=== PATIENT | male | born 1980 | race Caucasian/White ===

== ENCOUNTER → 2022-12-20 08:17 | Outpatient (CLI) | payer SELFPAY | PROVIDERS: Referring Provider Family Medicine; Visit Provider Family Medicine | DX: Z23 Encounter for immunization (principal) | CPT/HCPCS: 90471; 90686 ==

== ENCOUNTER → 2023-03-03 13:56 | Outpatient (CLI) | payer SELFPAY ==
[2023-03-07 15:30] LABS: QuantiFERON Mitogen Value >10.00 IU/mL (.); QuantiFERON TB Gold Plus Negative (Negative); QuantiFERON TB1 Ag Value 0.03 IU/mL (.); QuantiFERON TB2 Ag Value 0.03 IU/mL (.)
== END ==
DX: Z02.1 Encounter for pre-employment examination (principal)
CPT/HCPCS: 86480

== ENCOUNTER → 2023-12-02 16:15 | Outpatient (CLI) | payer OTHER, SELFPAY | PROVIDERS: Referring Provider Internal Medicine; Visit Provider Internal Medicine | DX: Z23 Encounter for immunization (principal) | CPT/HCPCS: 90471; 90656 ==

== ENCOUNTER 2024-04-11 15:17 | Emergency (ER) | payer OTHER, SELFPAY ==
[2024-04-11 15:19] VITALS: BP 114/70; PULSE 86; RESP 14; TEMP 36.6; O2SAT 99; BMI 25.7
--- NOTE | 2024-04-11 16:34 | ED.EXTPRO ---
HPI - Extremity Problem <Mansi Tejeda PA-C - Last Filed: 04/11/24 19:13> General Chief complaint: Extremity Problem,Nontraumatic Stated complaint: L Pinky Finger Infection Time Seen by Provider: 04/11/24 16:20 Source: patient Mode of arrival: Ambulatory History of Present Illness HPI Narrative: Mr. 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 Patient noticed redness and pus around his left pinky finger cuticle that started on Tuesday, he believes he might have had a hangnail there. Tuesday night he was started on Bactrim antibiotics however pain and swelling has only been getting worse. He presents to the emergency department today with hopes for drainage. He denies fevers, chills, other symptoms. Related Data Previous Rx's Medication Instructions Recorded diazepam 2 mg tablet (Valium) 2 mg PO BEDTIME PRN flight anxiety 03/29/24 #2 tabs ropinirole 0.25 mg tablet 0.25 mg PO DAILY #60 tabs 03/29/24 Allergies Allergy/AdvReac Type Severity Reaction Status Date / Time tramadol AdvReac Severe Seizure Verified 03/29/24 14:20 Review of Systems <Mansi Tejeda PA-C - Last Filed: 04/11/24 19:13> Review of Systems ROS Unobtainable: All systems reviewed & are unremarkable except as noted in HPI and below Patient History <Mansi Tejeda PA-C - Last Filed: 04/11/24 19:13> Medical History Fear of flying Restless leg syndrome Shift work sleep disorder Insomnia Social History Smoking Status: Former smoker Smoking Status: Former smoker Exam <Mansi Tejeda PA-C - Last Filed: 04/11/24 19:13> Narrative Exam Narrative: GENERAL: 43 year old patient appears stated age. Well-developed patient, in no acute distress. HEAD: Atraumatic. Normocephalic. CARDIOVASCULAR: Regular rate and rhythm. RESPIRATORY: ?Nonlabored respirations. ?Speaking in clear, full sentences. EXTREMITIES: left 5th finger with erythema, edema, purulent matter on the radial side of the proximal nail fold consistent with paronychia. No erythema or edema of the pad of the 5th finger. No streaking erythema up the hand or arm. No active drainage. NEURO: AOx3. ?Clear speech. ?Moves all 4 extremities appropriately. Initial Vital Signs Initial Vital Signs: Vital Signs Temperature 97.9 F 04/11/24 15:19 Pulse Rate 86 04/11/24 15:19 Respiratory Rate 14 04/11/24 15:19 Blood Pressure 114/70 04/11/24 15:19 Pulse Oximetry 99 04/11/24 15:19 Oxygen Delivery Method Room Air 04/11/24 15:19 <Gladys Lyons DO - Last Filed: 04/23/24 08:35> Initial Vital Signs Initial Vital Signs: Vital Signs Temperature 97.9 F 04/11/24 15:19 Pulse Rate 86 04/11/24 15:19 Respiratory Rate 14 04/11/24 15:19 Blood Pressure 114/70 04/11/24 15:19 Pulse Oximetry 99 04/11/24 15:19 Oxygen Delivery Method Room Air 04/11/24 15:19 Procedures <YULIET Cantu Last Filed: 04/11/24 19:13> Abscess I/D I&D #1: Time of procedure: 17:30 Site: hand (fifth finger) Side (if applicable): left Local Anesthetic: lidocaine 1% (digital block) Amount of anesthesia used (mL): 4 Technique: incised with #11 blade Amount of fluid expressed (mL): 3 Irrigation: No Packing used?: none Course <YULIET Cantu Last Filed: 04/11/24 19:13> Orders Ordered: Discontinued Medications Bacitracin (Bacitracin Oint 0.9 Gm Pckt) 1 applic TOP NOW ONE Stop: 04/11/24 17:37 Last Admin: 04/11/24 18:25 Dose: 1 applic Documented By: YOLANDA Doxycycline Hyclate (Doxycycline Hyclate 100 Mg Tablet) 100 mg PO NOW ONE Stop: 04/11/24 17:37 Last Admin: 04/11/24 18:25 Dose: 100 mg Documented By: YOLANDA Lidocaine HCl (Lidocaine 1% 20 Ml) 3 ml SUBCUT NOW ONE Stop: 04/11/24 16:50 Last Admin: 04/11/24 17:11 Dose: 3 ml Documented By: YOLANDA Vital Signs Vital signs: Vital Signs - 8 hr 04/11/24 15:19 Temperature 97.9 F Pulse Rate 86 Respiratory Rate 14 Blood Pressure 114/70 Pulse Oximetry 99 Oxygen Delivery Method Room Air <Gladys Lyons DO - Last Filed: 04/23/24 08:35> Orders Ordered: Discontinued Medications Bacitracin (Bacitracin Oint 0.9 Gm Pckt) 1 applic TOP NOW ONE Stop: 04/11/24 17:37 Last Admin: 04/11/24 18:25 Dose: 1 applic Documented By: YOLANDA Doxycycline Hyclate (Doxycycline Hyclate 100 Mg Tablet) 100 mg PO NOW ONE Stop: 04/11/24 17:37 Last Admin: 04/11/24 18:25 Dose: 100 mg Documented By: YOLANDA Lidocaine HCl (Lidocaine 1% 20 Ml) 3 ml SUBCUT NOW ONE Stop: 04/11/24 16:50 Last Admin: 04/11/24 17:11 Dose: 3 ml Documented By: YOLANDA Vital Signs Vital signs: Vital Signs - 8 hr 04/11/24 15:19 Temperature 97.9 F Pulse Rate 86 Respiratory Rate 14 Blood Pressure 114/70 Pulse Oximetry 99 Oxygen Delivery Method Room Air MDM - Extremity (Nontraumatic) <Mansi Tejeda PA-C - Last Filed: 04/11/24 19:13> Medical Records Attestation: I reviewed the patient's medical records. 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 Patient noticed redness and pus around his left pinky finger cuticle that started on Tuesday, he believes he might have had a hangnail there. Differential diagnosis includes but is not limited to paronychia, felon, cellulitis, abscess, etc. On exam patient is in no acute distress, nontoxic appearing, vital signs within normal limits. He has a paronychia on his left 5th finger. No streaking erythema. He has been on Bactrim for just under 2 days with no improvement of symptoms. We will proceed with I&D, obtain wound culture, and change antibiotic to doxycycline. Left 5th finger digital block was performed. Incision and drainage was performed after cleansing nail with Betadine. Eleven blade was used to make incision on the radial nail folds. Purulent matter was expressed and cultured. Wound was cleansed, bacitracin ointment applied, dressing applied. Discussed proper wound care with the patient, warm soaks, signs and symptoms to return to the ED for, PCP f/u. Patient verbalized understanding of all information is agreeable plan. He is stable for discharge home. Discharge Plan Departure Patient Disposition: Home Clinical Impression: Paronychia of left little finger Instructions: DI for Paronychia Activity Restrictions/Additional Instructions: Dear Mr. Figueroa, Thank you for coming to the emergency department today. Today we performed incision and drainage of a paronychia on your left 5th finger. A wound culture was obtained and was sent to the lab you will be called in 3 days if a change needs to be made your antibiotic regimen. I would like you to stop taking the Bactrim and start taking the doxycycline. Please perform 2-3 warm soapy water finger soaks daily and keep the wound covered with bacitracin or another antibiotic ointment at all times until it is healed. Avoid soaking the finger in any dirty water, pool, ocean, etc.. Return to the emergency department immediately if you develop any new or worsening symptoms, redness streaking up the hand or arm, fevers, any other concerns. Please take Ibuprofen (Motrin/Advil) or Acetaminophen (Tylenol) for pain. These are available over the counter. You may take Ibuprofen 600 mg every 8 hours with food for pain. You may also take Acetaminophen 650 mg every 4-6 hours for pain. Do not exceed 3000 mg of Tylenol a day as this can cause liver damage. Do not drink alcohol with either of these medications. Please follow up with your primary care doctor within the next 2-3 days for ER follow-up. (If you do not have a PCP you can call [phone]. ?to schedule an appointment with an [facility] Primary Care Provider) IF YOU DEVELOP ANY NEW OR WORSENING SYMPTOMS, RETURN TO THE ER! Please read the attached instructions, they highlight more specific treatments and interventions for you at home. Thank you for letting me participate in your care, Mansi Tejeda PA-C Prescriptions: No Action diazepam [Valium] 2 mg tablet 2 mg PO BEDTIME PRN (Reason: flight anxiety ) Qty: 2 0RF ropinirole 0.25 mg tablet 0.25 mg PO DAILY Qty: 60 1RF Rx Instructions: Start with 1 tab nightly, in 2 days increase to 2 tabs nightly, then in 5 days increase to 4 tabs nightly Referrals: Lisa Motta MD [Primary Care Provider] - Stand Alone Forms: Patient Portal/API/Survey ED Sign-out <Gladys Lyons DO - Last Filed: 04/23/24 08:35> Cosign ED Attending Coskettyature Attestation: I was immediately available in the department for consultation.
[2024-04-11] MEDS: LIDOCAINE 1% 20 ML 3 ML SUBCUT (17:11)
[2024-04-11] MEDS: BACITRACIN OINT 0.9 GM PCKT 1 APPLIC TOP (18:25)
[2024-04-11] MEDS: DOXYCYCLINE HYCLATE 100 MG TABLET PO (18:25)
== END 2024-04-11 18:28 | disposition home or self-care (01) ==
PROVIDERS: Emergency Provider Physician Assistant; PCP Family Medicine
DX: L03.012 Cellulitis of left finger (principal)
CPT/HCPCS: 10060; 87070; 87077; 87147; 87186; 87205; 99283